=== PATIENT | male | born 1970 | race Hispanic/Latino ===

== ENCOUNTER 2023-10-29 07:05 | Day surgery (SDC) | payer OTHER ==
[~2023-10-29] VITALS: Ht 172.7 cm; Wt 86.2 kg
[~2023-10-29 07:05] MED LIST: GARLIC10 MG PO; LEVOTHYROXIN75 MC1 PO; VITAMIN B-121000 MCG PO; VITAMIN D-32000 UNI1 PO; [UNRECOGNIZED DRUG - OTHER] PO
[2023-10-29] MEDS ORDERED: LACTATED RINGER'S 1,000 ML IV ONE (07:09)
[2023-10-29 08:30] VITALS: BP 125/81
[2023-10-29] MEDS ORDERED: LIDOCAINE HCL 2% 2ML SDV IV ONE (13:30)
[2023-10-29] MEDS ORDERED: PROPOFOL 500 MG/50 ML VIAL IV ONE (13:30)
[2023-10-29] MEDS ORDERED: GLYCOPYRROLATE 0.2 MG/ML IV ONE (13:30)
== END 2023-10-29 08:20 | disposition home or self-care (01) ==
LOC: ENDO 07:05
PROVIDERS: ATTEND Internal Medicine Gastroenterology
DX: Z12.11 Encounter for screening for malignant neoplasm of colon (principal); K63.5 Polyp of colon; K64.8 Other hemorrhoids; Z87.891 Personal history of nicotine dependence